=== PATIENT | male | born 1940 ===

== ENCOUNTER 2019-05-19 05:30 | Emergency (ER) | payer MEDICARE ==
--- NOTE | 2019-05-19 05:50 | EDM.PDOC ---
<MohamudurielChayo Denzel - Last Filed: 05/19/19 06:34> ED HPI GENERAL MEDICAL PROBLEM - General Chief Complaint: Abdominal Pain Stated Complaint: PAIN ALL OVER Time Seen by Provider: 05/19/19 05:30 Source of Information: Reports: Patient, RN History Limitations: Reports: Other (hearing impaired) - History of Present Illness INITIAL COMMENTS - FREE TEXT/NARRATIVE: ED ambulatory with c/o lower abdominal pain since Saturday, poor appetite, No vomiting or diarrhea, No difficulty or painful urination. No weakness. ENt negative for c/o. Smoker , no cough or SOB. Lower Abdominal Pain Score (Numeric/FACES): 10 - Related Data Allergies Allergy/AdvReac Type Severity Reaction Status Date / Time No Known Allergies Allergy Verified 05/19/19 05:51 Home Meds: Home Meds . [No Known Home Meds] 05/19/19 [History] ED ROS GENERAL - Review of Systems Review Of Systems: ROS reveals no pertinent complaints other than HPI. ED EXAM, GI/ABD - Physical Exam Exam: See Below Exam Limited By: No Limitations General Appearance: Alert, Mild Distress Eyes: Bilateral: EOMI Ears: Normal External Exam, Hearing Loss Nose: Normal Inspection Throat/Mouth: Normal Inspection Head: Atraumatic, Normocephalic Neck: Normal Inspection Respiratory/Chest: No Respiratory Distress, Lungs Clear, Normal Breath Sounds Cardiovascular: Normal Peripheral Pulses, Regular Rate, Rhythm GI/Abdominal Exam: Normal Bowel Sounds, Soft, No Distention, Tender (general lower greater left) Back Exam: Full Range of Motion Extremities: Normal Inspection, Normal Range of Motion Neurological: Alert, Oriented, Normal Cognition Psychiatric: Normal Affect, Normal Mood Skin Exam: Warm, Dry, Intact, Normal Color Course - Vital Signs Last Recorded V/S: Last Vital Signs Temp 37.4 C 05/19/19 06:33 Pulse 96 05/19/19 06:33 Resp 16 05/19/19 06:33 BP 129/73 05/19/19 06:33 Pulse Ox 94 L 05/19/19 06:33 - Orders/Labs/Meds Orders: Active Orders 24 hr Category Date Time Status CULTURE BLOOD [BC] Stat Lab 05/19/19 07:10 Received Sodium Chloride 0.9% [Normal Saline] 1,000 ml Med 05/19/19 06:14 Active IV .BOLUS Medication Orders Sodium Chloride (Normal Saline) 1,000 mls @ 200 mls/hr IV .BOLUS ONE Stop: 05/19/19 11:13 Last Admin: 05/19/19 06:26 Dose: 200 mls/hr Labs: Laboratory Tests 05/19/19 05/19/19 05/19/19 Range/Units 05:47 06:05 06:05 WBC 10.9 H (5.0-10.0) 10^3/uL RBC 4.72 (4.6-6.2) 10^6/uL Hgb 14.6 (14.0-18.0) g/dL Hct 42.2 (40.0-54.0) % MCV 89.4 (80-100) fL MCH 30.9 (27.0-34.0) pg MCHC 34.6 (33.0-35.0) g/dL Plt Count 227 (150-450) 10^3/uL Neut % (Auto) 78.9 H (42.2-75.2) % Lymph % (Auto) 11.7 L (20.5-50.1) % Dougherty % (Auto) 8.9 H (2-8) % Eos % (Auto) 0.4 L (1.0-3.0) % Baso % (Auto) 0.1 (0.0-1.0) % Sodium 132 L (135-145) mmol/L Potassium 3.4 L (3.6-5.0) mmol/L Chloride 94 L (101-111) mmol/L Carbon Dioxide 23.0 (21.0-31.0) mmol/L Anion Gap 18.4 BUN 37 H (7-18) mg/dL Creatinine 1.2 (0.6-1.3) mg/dL Est Cr Clr Drug Dosing 39.11 mL/min Estimated GFR (MDRD) 59 BUN/Creatinine Ratio 30.83 Glucose 113 H (74-105) mg/dL Lactic Acid (0.5-2.2) mmol/L Calcium 8.9 (8.4-10.2) mg/dl Total Bilirubin 1.0 (0.2-1.0) mg/dL AST 20 (10-42) IU/L ALT 18 (10-60) IU/L Alkaline Phosphatase 90 (42-121) IU/L Total Protein 7.6 (6.7-8.2) g/dl Albumin 3.8 (3.2-5.5) g/dl Globulin 3.8 Albumin/Globulin Ratio 1.00 Amylase 85 (28-100) U/L Lipase 24 (22-51) U/L Urine Color Yellow (YELLOW) Urine Appearance Clear (CLEAR) Urine pH 6.0 (5.0-9.0) Ur Specific [place] 1.025 (1.005-1.030) Urine Protein 30 H (NEGATIVE) Urine Glucose (UA) Negative (NEGATIVE) Urine Ketones 40 H (NEGATIVE) Urine Occult Blood Moderate H (NEGATIVE) Urine Nitrite Negative (NEGATIVE) Urine Bilirubin Small H (NEGATIVE) Urine Urobilinogen 0.2 (0.2-1.0) mg/dL Ur Leukocyte Esterase Negative (NEGATIVE) Urine RBC 20-30 H /HPF Urine WBC 5-10 H (0-5/HPF) /HPF Ur Epithelial Cells Rare (NOT SEEN) /HPF Amorphous Sediment Few (NOT SEEN) /HPF Urine Bacteria Few (0-FEW/HPF) /HPF Urine Mucus Few H (NOT SEEN) /LPF 05/19/19 Range/Units 06:05 WBC (5.0-10.0) 10^3/uL RBC (4.6-6.2) 10^6/uL Hgb (14.0-18.0) g/dL Hct (40.0-54.0) % MCV (80-100) fL MCH (27.0-34.0) pg MCHC (33.0-35.0) g/dL Plt Count (150-450) 10^3/uL Neut % (Auto) (42.2-75.2) % Lymph % (Auto) (20.5-50.1) % Dougherty % (Auto) (2-8) % Eos % (Auto) (1.0-3.0) % Baso % (Auto) (0.0-1.0) % Sodium (135-145) mmol/L Potassium (3.6-5.0) mmol/L Chloride (101-111) mmol/L Carbon Dioxide (21.0-31.0) mmol/L Anion Gap BUN (7-18) mg/dL Creatinine (0.6-1.3) mg/dL Est Cr Clr Drug Dosing mL/min Estimated GFR (MDRD) BUN/Creatinine Ratio Glucose (74-105) mg/dL Lactic Acid 0.8 (0.5-2.2) mmol/L Calcium (8.4-10.2) mg/dl Total Bilirubin (0.2-1.0) mg/dL AST (10-42) IU/L ALT (10-60) IU/L Alkaline Phosphatase (42-121) IU/L Total Protein (6.7-8.2) g/dl Albumin (3.2-5.5) g/dl Globulin Albumin/Globulin Ratio Amylase (28-100) U/L Lipase (22-51) U/L Urine Color (YELLOW) Urine Appearance (CLEAR) Urine pH (5.0-9.0) Ur Specific [place] (1.005-1.030) Urine Protein (NEGATIVE) Urine Glucose (UA) (NEGATIVE) Urine Ketones (NEGATIVE) Urine Occult Blood (NEGATIVE) Urine Nitrite (NEGATIVE) Urine Bilirubin (NEGATIVE) Urine Urobilinogen (0.2-1.0) mg/dL Ur Leukocyte Esterase (NEGATIVE) Urine RBC /HPF Urine WBC (0-5/HPF) /HPF Ur Epithelial Cells (NOT SEEN) /HPF Amorphous Sediment (NOT SEEN) /HPF Urine Bacteria (0-FEW/HPF) /HPF Urine Mucus (NOT SEEN) /LPF Meds: Medications Generic Name Dose Route Start Last Admin Trade Name Freq PRN Reason Stop Dose Admin Sodium Chloride 1,000 mls @ 200 mls/hr 05/19/19 06:14 05/19/19 06:26 Normal Saline IV 05/19/19 11:13 200 mls/hr .BOLUS ONE Administration Discontinued Medications Generic Name Dose Route Start Last Admin Trade Name Freq PRN Reason Stop Dose Admin Hydromorphone HCl 0.5 mg 05/19/19 06:14 05/19/19 06:28 Dilaudid IVPUSH 05/19/19 06:15 0.5 mg ONETIME ONE Administration Iopamidol 75 ml 05/19/19 06:40 05/19/19 07:19 Isovue-300 (61%) IVPUSH 05/19/19 06:41 75 ml ONETIME ONE Administration Ondansetron HCl 4 mg 05/19/19 06:14 05/19/19 06:27 Zofran IV 05/19/19 06:15 4 mg ONETIME ONE Administration Departure - Departure Disposition: DC/Tfer to Acute Hospital 02 Clinical Impression: AAA (abdominal aortic aneurysm) Qualifiers: Presence of rupture: without rupture Qualified Code(s): I71.4 - Abdominal aortic aneurysm, without rupture - Discharge Information Forms: Interfacility Transfer [facility] Care Plan Goals: Discussed the patient's history, examination, lab and CT results with Dr. Murray (Vascular Surgery with [facility] in [place]). Dr. Murray accepted the patient for continued evaluation and management as an inpatient at [facility]. The patient will be transported by [facility]. <Maninder Nance - Last Filed: 05/19/19 08:45> Course - Re-Assessments/Exams Free Text/Narrative Re-Assessment/Exam: 05/19/19 08:44 The patient was advised of the CT results and options for treatment. The patient was initially apprehensive about being transferred, but agreed to transport due to the possible outcomes of not getting further assessment and treatment in a timely fashion. Departure - Departure Time of Disposition: 08:40 Condition: Serious - Discharge Information *PRESCRIPTION DRUG MONITORING PROGRAM REVIEWED*: Not Applicable *COPY OF PRESCRIPTION DRUG MONITORING REPORT IN PATIENT ORLIN: Not Applicable
[2019-05-19] MEDS ORDERED: Ondansetron 4 MG/2 ML SDV IV ONE (06:14)
[2019-05-19] MEDS ORDERED: Sodium Chloride 0.9% 1,000 ML IV ONE (06:14)
[2019-05-19] MEDS ORDERED: HYDROmorphone 1 MG/ML Syringe IVPUSH ONE (06:14)
[2019-05-19 06:36] LABS: ANION GAP 18.4
[2019-05-19] MEDS ORDERED: Iopamidol 612 MG/ML 75 ML Bottle IVPUSH ONE (06:40)
== END 2019-05-19 08:52 ==
LOC: DL.ED 05:30
DX: I71.4 Abdominal aortic aneurysm, without rupture (principal)
CPT/HCPCS: 36415; 74177; 80053; 81001; 82150; 83605; 83690; 85025; 87040; 96361; 96374; 96375; 99285; J1170; J2405; J7030; Q9967; 99284

== ENCOUNTER 2022-03-01 16:48 | Emergency (ER) | payer MEDICARE ==
[2022-03-01] MEDS ORDERED: Sodium Chloride 0.9% 10 ML Syringe FLUSH PRN (17:04)
[2022-03-01] MEDS ORDERED: Sodium Chloride 0.9% 1,000 ML IV ONE ×2 (17:11→18:28)
[2022-03-01 17:54] LABS: ANION GAP 16.8 mEq/L (7-13); CHLORIDE,CL 99 mmol/L (98-107); ESTIMATED GFR 48 mL/min (>=60); SODIUM,NA 136 mmol/L (136-145)
== END 2022-03-01 21:40 | disposition home or self-care (01) ==
LOC: DL.ED 16:48
DX: U07.1 COVID-19 (principal); Z72.0 Tobacco use; Z79.82 Long term (current) use of aspirin
CPT/HCPCS: 36415; 71045; 80053; 81001; 83605; 83735; 84100; 84443; 85025; 86140; 87040; 96360; 96361; 99284; J3490; J7030; U0002

== ENCOUNTER 2023-08-01 16:00 | Emergency (ER) | payer MEDICARE ==
[2023-08-01] MEDS ORDERED: Sodium Chloride 0.9% 10 ML Syringe FLUSH PRN (16:28)
[2023-08-01] MEDS ORDERED: fentaNYL 100 MCG/2 ML SDV IVPUSH ONE (16:30)
[2023-08-01] MEDS ORDERED: Midazolam 1 MG/ML 2 ML SDV IVPUSH ONE (16:30)
[2023-08-01] MEDS ORDERED: Lidocaine 2% with EPINEPHrine 1:200,000 20 ML SDV INJECT ONE (16:31)
[2023-08-01 16:41] LABS: BASOPHILS PERCENT AUTO 0.2 % (0.0-1.0); HEMATOCRIT 47.5 % (40.0-54.0); HEMOGLOBIN 15.8 g/dL (14.0-18.0); MEAN CORPUSCULAR HEMOGLOBIN 30.9 pg (27.0-34.0); MEAN CORPUSCULAR HGB CONC 33.3 g/dL (33.0-35.0); MEAN CORPUSCULAR VOLUME 92.8 fL (80-100); MONOCYTES PERCENT AUTO 8.9 % (2-8); NEUTROPHILS PERCENT AUTO 87.9 % (42.2-75.2); PLATELET COUNT,PLT 261 10^3/uL (150-450); RED BLOOD CELL COUNT 5.12 10^6/uL (4.6-6.2); WHITE BLOOD CELL COUNT,WBC 14.8 10^3/uL (5.0-10.0)
[2023-08-01] MEDS ORDERED: Ketamine 500 mg/10 ML MDV IV ONE ×2 (16:41→17:58)
[2023-08-01 16:56] LABS: A/G RATIO 1.1; ALANINE AMINOTRANSFERASE,ALT 44 U/L (16-63); ALBUMIN 4.8 g/dL (3.4-5.0); ALKALINE PHOSPHATASE 145 U/L (46-116); ANION GAP 24.9 mEq/L (7-13); ASPARTATE AMNIOTRANSFERASE,AST 67 U/L (15-37); BILIRUBIN TOTAL 0.9 mg/dL (0.2-1.0); BLOOD UREA NITROGEN,BUN 58 mg/dL (7-18); BUN/CREATININE RATIO 22.1 (No establ ref range); C-REACTIVE PROTEIN 6.88 ng/dL (<=0.50); CALCIUM 9.2 mg/dL (8.5-10.1); CARBON DIOXIDE,CO2 22 mmol/L (21-32); CHLORIDE,CL 101 mmol/L (98-107); CREATININE 2.62 mg/dL (0.70-1.30); GLUCOSE RANDOM 137 mg/dL (70-99); POTASSIUM,K 4.9 mmol/L (3.5-5.1); PROTEIN TOTAL,TP 9.3 g/dL (6.4-8.2); SODIUM,NA 143 mmol/L (136-145)
[2023-08-01 16:59] LABS: INR 1.2 (0.9-1.2); PROTHROMBIN TIME 11.7 SEC (9.0-12.0)
[2023-08-01 17:01] LABS: ESTIMATED GFR 24 mL/min (>=60); LACTIC ACID 4.8 mmol/L (0.4-2.0)
[2023-08-01] MEDS ORDERED: Sodium Chloride 0.9% 1,000 ML IV ONE ×2 (17:55→17:59)
[2023-08-01] MEDS: Albuterol/Ipratropium 3.0-0.5 MG/3 ML Neb Soln ONE ×2 (18:12→18:13)
[2023-08-01] MEDS ORDERED: Metoprolol Tartrate 5 MG/5 ML SDV IVPUSH ONE (19:39)
== END 2023-08-01 19:55 ==
LOC: DL.ED 16:00
DX: S42.212A Unspecified displaced fracture of surgical neck of left humerus, initial encounter for closed fracture (principal); S22.42XA Multiple fractures of ribs, left side, initial encounter for closed fracture; S27.0XXA Traumatic pneumothorax, initial encounter; J44.9 Chronic obstructive pulmonary disease, unspecified; W00.0XXA Fall on same level due to ice and snow, initial encounter
CPT/HCPCS: 32551; 36415; 71045; 73030-LT; 80053; 83605; 85025; 85610; 86140; 96361; 96374; 99285-25; J3490; J7030; J7620-GY